=== PATIENT | female | born 1980 | race Caucasian/White ===

== ENCOUNTER 2016-11-06 10:10 | Emergency (ER) | payer OTHER ==
[~2016-11-06] VITALS: Ht 170.2 cm; Wt 56.8 kg
[~2016-11-06 10:10] MED LIST: Dilaudid PO; MOBIC7.5 MG PO; Motrin PO; NATALCARE RX1 TABLET PO; PANTOPRAZOLE SO40 MG PO; PRILOSEC20 MG PO; ULTRAM50 MG PO
[2016-11-06 11:25] LABS: HEMATOCRIT 45.7 % (36.0-46.0); MCH 28.2 PG (29.0-34.0); MCHC 33.9 G/DL (30.0-36.0); MCV 83.1 FL (83-99); MEAN PLAT.VOLUME 13.2 uM^3 (9.5-12.4); PLATELET COUNT 208 K/uL (156-360); RBC DIS.WIDTH-CV 13.2 % (11.8-14.6); RBC DIS.WIDTH-SD 39.9 % (39-53); WHITE BLOOD COUNT 11.2 K/uL (4.1-10.2)
[2016-11-06 11:32] LABS: D-DIMER ELISA < 150.00 ng/mLDDU (<230)
[2016-11-06 11:33] LABS: CHLORIDE 107 mEq/L (99-109); POTASSIUM 3.9 mEq/L (3.7-5.4); SODIUM 138 mEq/L (136-147)
[2016-11-06 11:34] LABS: GLUCOSE 97 mg/dL (70-99)
[2016-11-06 11:36] LABS: ANION GAP 14 MEQ/L (2-14)
[2016-11-06 11:38] LABS: GFR ESTIMATE (CALCULATED) > 59 mL/min/
[2016-11-06 11:39] LABS: UREA NITROGEN (BUN) 10 mg/dL (9-23)
[2016-11-06 11:45] LABS: TROP-I INTERPRETATION NEGATIVE; TROPONIN-I < 0.01 ng/mL (0.0-0.30)
[2016-11-06 13:01] LABS: CREATINE KINASE 75 IU/L (1-294)
[2016-11-06 13:37] LABS: TROP-I INTERPRETATION NEGATIVE; TROPONIN-I < 0.01 ng/mL (0.0-0.30)
[2016-11-06 14:25] VITALS: BP 126/55
== END 2016-11-06 14:32 | disposition home or self-care (01) ==
LOC: EME 10:10
PROVIDERS: Physician Assistant
DX: R07.81 Pleurodynia (principal); Z87.891 Personal history of nicotine dependence
CPT/HCPCS: 71020; 80048; 82550; 82550 91; 84484; 85027; 85379; 93005; 99281; 99284